=== PATIENT | female | born 1985 | race Caucasian/White ===

== ENCOUNTER 2021-04-14 08:03 | Emergency (ER) | payer OTHER, SELFPAY ==
[2021-04-14 08:13] VITALS: BP 126/73; PULSE 79; RESP 16; TEMP 36.4; O2SAT 98
[2021-04-14 08:25] VITALS: BP 126/73; PULSE 79; RESP 16; TEMP 36.4; O2SAT 98
--- NOTE | 2021-04-14 08:37 | ED.URI ---
HPI - URI/Sore Throat General Chief Complaint: Upper Respiratory Infection Stated Complaint: Congestion Time Seen by Provider: 04/14/21 08:19 Source: patient and RN notes reviewed Mode of arrival: ambulatory Limitations: no limitations History of Present Illness HPI Narrative: Patient presents today complaining of congestion and postnasal drip since yesterday. Denies congestion, sore throat, fever, shortness of breath. Daughter was diagnosed with strep throat 1 week ago. She has been using Claritin and Sudafed as well as ibuprofen with mild relief. MD elicited complaint: nasal congestion Related Data Home Medications Medication Instructions Recorded Confirmed levonorgestrel [Mirena] INTRAUTERINE 10/07/19 Allergies Allergy/AdvReac Type Severity Reaction Status Date / Time No Known Allergies Allergy Verified 04/14/21 08:12 Review of Systems Review of Systems: Narrative: CONSTITUTIONAL: Denies body aches, fever, chills, or sweats. EYES: Denies visual changes, redness, or discharge. ENT: Denies rhinorrhea, sore throat, or otalgia. + Congestion, postnasal drip CARDIOVASCULAR: Denies chest pain, palpitations, or edema. RESPIRATORY: Denies cough or dyspnea. GASTROINTESTINAL: Denies abdominal pain, nausea, vomiting, or diarrhea. GENITOURINARY: Denies dysuria or hematuria. SKIN: Denies rash, itching, or wounds. MUSCULOSKELETAL: Denies back pain, joint pain, or myalgia. NEUROLOGIC: Denies headache, numbness, tingling, or weakness. PSYCH: Denies depression or anxiety. [facility] Past Medical History Medical History (Updated 04/14/21 @ 08:40 by Summer Guaman, RIKI, ) Depression Surgical History Surgical History (Updated 10/07/19 @ 12:46 by RIKI Hedrick) H/O: x 3 Social History Social History (Updated 10/07/19 @ 12:46 by RIKI Hedrick) Smoking status: Current every day smoker Tobacco type: cigarettes Alcohol intake: never Substance use: never Gender identity (if verbalized by the patient): Female Comments At time of signature, I have reviewed and agree with nursing past medical, surgical, social and family history unless otherwise noted. Please see nursing chart for further information. There is no relevant family history pertinent to the presenting complaint Exam Narrative: Exam Narrative: GENERAL: Well-appearing, well-nourished, and in no acute distress. HEAD: Normocephalic, atraumatic. EYES: EOMI. No redness or drainage. Conjunctivae normal. ENT: Mucous membranes pink and moist. Nares congested with rhinorrhea. TMs normal bilaterally. Throat erythematous and edematous. Tonsils 3+ without exudate. Uvula midline. NECK: Normal AROM. Supple. CHEST: No respiratory distress. Clear to auscultation. HEART: Regular rate and rhythm. No murmur appreciated. Normal peripheral pulses. EXTREMITIES: Normal range of motion. No edema. SKIN: Warm, dry, no rash. Capillary refill normal. Normal skin turgor. NEURO: No focal deficits. Alert and oriented x3. Gait steady. PSYCH: Normal affect. No signs of depression or anxiety. Course Vital Signs Vital signs: Vital Signs Temperature 97.6 F 04/14/21 08:13 Pulse Rate 79 04/14/21 08:13 Respiratory Rate 16 04/14/21 08:13 Blood Pressure 126/73 04/14/21 08:13 Pulse Oximetry 98 04/14/21 08:13 Temperature 97.6 F 04/14/21 08:25 Pulse Rate 79 04/14/21 08:25 Respiratory Rate 16 04/14/21 08:25 Blood Pressure 126/73 04/14/21 08:25 Pulse Oximetry 98 04/14/21 08:25 Reviewed. Pt has been instructed to follow up with her PCP regarding her elevated blood pressure today. MDM - URI/Sore Throat Differential Diagnosis Differential diagnosis: Likely upper respiratory infection, otitis media, sinusitis, viral infection, pharyngitis and other (Tonsillitis, strep throat, COVID-19) Lab Data Attestation: I reviewed the patient's lab results. Lab results narrative: Rapid COVID-19 test negative Labs:
== END 2021-04-14 08:46 | disposition home or self-care (01) ==
PROVIDERS: Emergency Provider Nurse Practitioner
DX: J02.0 Streptococcal pharyngitis (principal); Z20.822 Contact with and (suspected) exposure to COVID-19; F17.210 Nicotine dependence, cigarettes, uncomplicated
CPT/HCPCS: 87426; 87880; 99213; C9803; G0463

== ENCOUNTER 2021-06-19 08:26 | Emergency (ER) | payer OTHER, SELFPAY ==
--- NOTE | 2021-06-19 08:31 | ED.NAVMDI ---
HPI - Nausea/Vomiting/Diarrhea General Chief complaint: Nausea/Vomiting/Diarrhea Stated complaint: Headache/Diarrhea Source: patient and RN notes reviewed Mode of arrival: ambulatory History of Present Illness HPI Narrative: This is a 36-year-old female presented to urgent care with complaints of migraine which is not new to her congestion and a productive cough with white foamy secretions she also has been complaining of left ear pain. Patient notes that her daughter was recently diagnosed with upper respiratory infection and she has recently traveled. She will also be tested or Covid today. Patient notes that she has a history of nausea and takes Zofran daily to prevent her nausea. She also complains of diarrhea for the last 3 days. She notes that today she has had 3 episodes of diarrhea. The patient denies SOB, CP, palpitation, extremity numbness, lightheadedness, dizziness, constipation, chills, or fever. MD elicited complaint: nausea, vomiting and diarrhea Related Data Home Medications Medication Instructions Recorded Confirmed Mirena INTRAUTERINE 10/07/19 Allergies Allergy/AdvReac Type Severity Reaction Status Date / Time No Known Allergies Allergy Verified 04/14/21 08:12 Review of Systems Review of Systems: A 14 organ system Review of Systems was performed and pertinent positives included in the HPI, otherwise remaining ROS is negative. [facility] Past Medical History Medical History (Updated 06/19/21 @ 09:09 by CULLEN Storm) Depression Surgical History Surgical History (Updated 10/07/19 @ 12:46 by RIKI Hedrick) H/O: x 3 Social History Social History (Updated 10/07/19 @ 12:46 by RIKI Hedrick) Smoking status: Current every day smoker Tobacco type: cigarettes Alcohol intake: never Substance use: never Gender identity (if verbalized by the patient): Female Exam Narrative: GENERAL: This is a well-nourished, well-developed patient, in no apparent distress. HEAD: normocephalic, atraumatic. EYES: PERRL. Sclera clear/white. Vision is grossly intact. EARS: External ears normal, auditory canals clear and without drainage, TMs with erythematous without perforation. Hearing grossly intact. NOSE: External nose normal with no obvious nasal discharge, nares without redness, no rhinorrhea. THROAT: Mucous membranes moist, posterior pharynx with slight edema erythematous NECK: Neck supple, non-tender without lymphadenopathy, masses or thyromegaly. CARDIOVASCULAR: Regular rate and rhythm without murmurs, gallops, or rubs. RESPIRATORY: Clear to auscultation. Breath sounds equal bilaterally. No wheezes, rales, or rhonchi. GASTROINTESTINAL: Abdomen soft, non-tender, nondistended. Bowel sounds are active. No hepato-splenomegaly, or palpable masses. No guarding. SKIN: warm, intact with no suspicious lesions or rash, good texture and turgor. NEURO: awake, alert, and oriented to person, place and time. There were no obvious focal neurologic abnormalities. Steady gait EXTREMITIES: Normal range of motion. No edema. No calf tenderness. Negative Homans sign bilaterally. BACK: Nontender without deformity or crepitance. No flank tenderness. Course Course Emergency Course: Patient will be treated for upper respiratory infection and otitis media Vital Signs Vital signs: Vital Signs Temperature 97.5 F L 06/19/21 08:38 Pulse Rate 92 06/19/21 08:38 Respiratory Rate 18 06/19/21 08:38 Blood Pressure 115/72 06/19/21 08:38 Pulse Oximetry 97 06/19/21 08:38 Temperature 97.5 F L 06/19/21 08:38 Pulse Rate 92 06/19/21 08:38 Respiratory Rate 18 06/19/21 08:38 Blood Pressure 115/72 06/19/21 08:38 Pulse Oximetry 97 06/19/21 08:38 MDM - Nausea/Vomiting/Diarrhea Differential Diagnosis Differential diagnosis: Likely food poisoning, gastroenteritis, dehydration and other (Upper respiratory infection, otitis media) Discharge Plan Discharge Clinical Im
[2021-06-19 08:38] VITALS: BP 115/72; PULSE 92; RESP 18; TEMP 36.4; O2SAT 97
== END 2021-06-19 09:27 | disposition home or self-care (01) ==
PROVIDERS: Emergency Provider Nurse Practitioner
DX: H66.92 Otitis media, unspecified, left ear (principal); J06.9 Acute upper respiratory infection, unspecified; Z20.822 Contact with and (suspected) exposure to COVID-19; F17.210 Nicotine dependence, cigarettes, uncomplicated
CPT/HCPCS: 87426; 99213; C9803; G0463

== ENCOUNTER 2021-07-26 19:30 | Emergency (ER) | payer OTHER, SELFPAY ==
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
[2021-07-26 19:40] VITALS: BP 120/75; PULSE 96; RESP 20; TEMP 36.8; O2SAT 99
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
== END 2021-07-26 20:25 | disposition home or self-care (01) ==
PROVIDERS: Emergency Provider Nurse Practitioner
DX: M54.5 Low back pain (principal); S16.1XXA Strain of muscle, fascia and tendon at neck level, initial encounter; V49.40XA Driver injured in collision with unspecified motor vehicles in traffic accident, initial encounter; F17.210 Nicotine dependence, cigarettes, uncomplicated
CPT/HCPCS: 72050; 72110; 99213; G0463

== ENCOUNTER 2021-08-05 09:39 | Emergency (ER) | payer OTHER, SELFPAY ==
[2021-08-05 10:01] VITALS: BP 109/72; PULSE 77; RESP 18; TEMP 36.5; O2SAT 97
--- NOTE | 2021-08-05 10:36 | ED.NAVMDI ---
HPI - Nausea/Vomiting/Diarrhea General Chief complaint: Nausea/Vomiting/Diarrhea Stated complaint: Throwing Up Time Seen by Provider: 08/05/21 10:36 Source: patient, RN notes reviewed and old records reviewed History of Present Illness HPI Narrative: 36 year old female presents to [facility] care with complaints of abdominal cramping,nausea and vomiting X2, diarrhea X3 starting this morning. Patient reports no fevers or anyone else in family ill. She reports that she ate [place] food Thursday evening but did not have any abdominal issues or any nausea on Thursday.Patient states she was suppose to start new job today at [employer] but with symptoms did not go into work but spoke with boss. Has been able to keep small sips of water down but has not eaten today. MD elicited complaint: diarrhea and abdominal pain (Cramping) Related Data Home Medications Medication Instructions Recorded Confirmed Mirena See Rx Instructions .ROUTE .COMPLEX 10/07/19 08/05/21 Allergies Allergy/AdvReac Type Severity Reaction Status Date / Time No Known Allergies Allergy Verified 07/26/21 19:50 Review of Systems Review of Systems: CONSTITUTIONAL: Denies fever, chills, or sweats. EYES: Denies visual changes, redness, or discharge. ENT: Denies rhinorrhea, congestion, sore throat, or otalgia. CARDIOVASCULAR: Denies chest pain, palpitations, or edema. RESPIRATORY: Denies cough or dyspnea. GASTROINTESTINAL: abdominal cramping no acute pain, positive nausea, vomiting, or diarrhea. GENITOURINARY: Denies dysuria or hematuria. SKIN: Denies rash or itching. MUSCULOSKELETAL: Denies back pain, joint pain, or myalgia. NEUROLOGIC: Denies headache, numbness, or weakness. PSYCHIATRIC:Positive history of anxiety or depression. All systems reviewed & are unremarkable except as noted in HPI and below PMFSH Past Medical History Medical History (Updated 08/06/21 @ 11:18 by Rashmi Bhatt NP) Depression Hx of migraines Surgical History Surgical History H/O: x 3 Family History Family History (Updated 08/06/21 @ 11:24 by Rashmi Bhatt NP) Grandparent Cerebrovascular accident Diabetes mellitus Carcinoma of colon Kidney disease Mother Lung cancer Social History Social History Smoking status: Current every day smoker Tobacco type: cigarettes Alcohol intake: never Substance use: never Gender identity (if verbalized by the patient): Female Comments At time of signature, agree with nursing past medical, surgical, social and family history. There is no relevant family history pertinent to the presenting complaint Exam Narrative: GENERAL: Well-appearing, well-nourished, and in no acute distress. HEAD: Normocephalic, atraumatic. EYES: PERRLA and EOMI. ENT: Nares clear, no rhinorrhea or epistaxis. Mucous membranes moist.Tm's normal throat pik with no lesions or exudates, no tonsil enlargement NECK: Supple.no lymphadenopathy CHEST: Clear to auscultation. No respiratory distress.SAO2 97% on room air HEART: Regular rate and rhythm. No murmur heard. Normal peripheral pulses. ABDOMEN: Soft, nontender to palpation, reports cramping sensation, no McBurney point tenderness, nondistended, normal active bowel sounds.nausea with vomiting and diarrhea. EXTREMITIES: Normal range of motion. No edema. SKIN: Warm, dry, no rash. NEURO: No focal deficits. Alert and oriented x3. Course Vital Signs Vital signs: Vital Signs Temperature 36.5 C 08/05/21 10:01 Pulse Rate 77 08/05/21 10:01 Respiratory Rate 18 08/05/21 10:01 Blood Pressure 109/72 08/05/21 10:01 Pulse Oximetry 97 08/05/21 10:01 Temperature 36.5 C 08/05/21 10:01 Pulse Rate 77 08/05/21 10:01 Respiratory Rate 18 08/05/21 10:01 Blood Pressure 109/72 08/05/21 10:01 Pulse Oximetry 97 08/05/21 10:01 MDM - Nausea/Vomiting/Diarrhea Differen
== END 2021-08-05 11:18 | disposition home or self-care (01) ==
PROVIDERS: Emergency Provider Registered Nurse
DX: K52.9 Noninfective gastroenteritis and colitis, unspecified (principal); F17.200 Nicotine dependence, unspecified, uncomplicated
CPT/HCPCS: 99213; G0463

== ENCOUNTER 2021-08-22 09:28 | Emergency (ER) | payer OTHER, SELFPAY ==
[2021-08-22 09:36] VITALS: BP 119/73; PULSE 79; RESP 16; TEMP 36.7; O2SAT 99
--- NOTE | 2021-08-22 10:28 | ED.URI ---
HPI - URI/Sore Throat General Chief Complaint: Upper Respiratory Infection Stated Complaint: Runny nose Time Seen by Provider: 08/22/21 10:29 Source: patient Mode of arrival: ambulatory Limitations: no limitations History of Present Illness HPI Narrative: Kelsi Burroughs is a 36 yo [facility] of [facility] and drainage that is worsened in the last 24 hours she has no severe sore throat no fever Related Data Home Medications Medication Instructions Recorded Confirmed Mirena See Rx Instructions .ROUTE .COMPLEX 10/07/19 08/22/21 Allergies Allergy/AdvReac Type Severity Reaction Status Date / Time No Known Allergies Allergy Verified 08/22/21 09:50 Review of Systems Review of Systems: CONSTITUTIONAL: Denies fever, chills, sweats. EYES: Denies visual changes, redness, discharge. ENT:has rhinorrhea, has congestion, sore throat, otalgia. CARDIOVASCULAR: Denies chest pain, palpitations, edema. RESPIRATORY: Denies dyspnea, wheezing, cough GASTROINTESTINAL: Denies abdominal pain, nausea, vomiting, diarrhea. GENITOURINARY: Denies dysuria, hematuria, abnormal discharge SKIN: Denies rash or itching. NEUROLOGIC: Denies numbness, or focal weakness. PSYCHIATRIC: Denies anxiety or depression. [facility] Past Medical History Medical History Depression Hx of migraines Surgical History Surgical History H/O: x 3 Family History Family History Grandparent Cerebrovascular accident Diabetes mellitus Carcinoma of colon Kidney disease Mother Lung cancer Social History Social History Smoking status: Current every day smoker Tobacco type: cigarettes Alcohol intake: never Substance use: never Gender identity (if verbalized by the patient): Female Comments At time of signature, I agree with nursing past medical, surgical, social and family history. There is no relevant family history pertinent to the presenting complaint. Exam Narrative: GENERAL: This is a well-nourished, well-developed patient, in mild distress. HEAD: normocephalic, atraumatic. EYES: Sclera clear/white. Vision is grossly intact. EARS: External ears normal, auditory canals erythema and without drainage, TMs normal without perforation. Hearing grossly intact. NOSE: External nose normal without nasal discharge, nares with redness, has rhinorrhea. THROAT: Mucous membranes moist, posterior pharynx erythema NECK: Neck supple, non-tender CARDIOVASCULAR: Regular rate and rhythm without murmurs, gallops, or rubs. RESPIRATORY: Clear to auscultation. Breath sounds equal bilaterally. No wheezes, rales, or rhonchi. GASTROINTESTINAL: Abdomen soft, non-tender, SKIN: warm, intact with no suspicious lesions or rash, good texture and turgor. NEURO: awake, alert, and oriented to person, place and time. There were no obvious focal neurologic abnormalities. Steady gait EXTREMITIES: Normal range of motion. BACK: Nontender without deformity Course Course Emergency Course: Patient comes with 1 day of upper respiratory symptoms including congestion and stuffiness, morning cough but also smokes PCR Covid done quarantine until results obtained Prednisone Zyrtec and Mucinex Vital Signs Vital signs: Vital Signs Temperature 98.0 F 08/22/21 09:36 Pulse Rate 79 08/22/21 09:36 Respiratory Rate 16 08/22/21 09:36 Blood Pressure 119/73 08/22/21 09:36 Pulse Oximetry 99 08/22/21 09:36 Temperature 98.0 F 08/22/21 09:36 Pulse Rate 79 08/22/21 09:36 Respiratory Rate 16 08/22/21 09:36 Blood Pressure 119/73 08/22/21 09:36 Pulse Oximetry 99 08/22/21 09:36 MDM - URI/Sore Throat Differential Diagnosis Differential diagnosis: Likely sinusitis, bronchitis, influenza, pharyngitis
[2021-08-23 17:41] LABS: SARS-CoV-2 RNA PCR Negative
== END 2021-08-22 11:05 | disposition home or self-care (01) ==
PROVIDERS: Emergency Provider Nurse Practitioner
DX: J06.9 Acute upper respiratory infection, unspecified (principal); Z20.822 Contact with and (suspected) exposure to COVID-19; F32.A Depression, unspecified; F17.210 Nicotine dependence, cigarettes, uncomplicated
CPT/HCPCS: 99213; C9803; G0463; U0003; U0005

== ENCOUNTER 2022-02-25 13:28 | Emergency (ER) | payer OTHER, SELFPAY ==
[2022-02-25 13:36] VITALS: BP 108/63; PULSE 86; RESP 16; TEMP 36.9; O2SAT 99
[2022-02-25 13:39] VITALS: BP 108/63; PULSE 86; RESP 16; TEMP 36.9; O2SAT 99
--- NOTE | 2022-02-25 13:48 | ED.DENTAL ---
HPI - Dental/Oral General Chief complaint: Dental/Oral Stated complaint: Tooth Pain Source: patient Mode of arrival: ambulatory Limitations: no limitations History of Present Illness HPI Narrative: 36-year-old female presents to [facility] with right lower tooth pain for the past 2 weeks. Patient reports that she had a long time filling full out from this tooth approximately 3 months ago. Patient has been taking [id number] ibuprofen with minimal relief. Patient denies fever, bodyaches, chills, nausea, vomiting or diarrhea. MD Complaint: tooth pain Location: Tooth # (30) Onset (ago): week(s) (2) Relieving factors: nothing Exacerbating factors: nothing Treatment prior to arrival: none Related Data Home Medications Medication Instructions Recorded Confirmed Mirena See Rx Instructions .ROUTE .COMPLEX 10/07/19 02/25/22 Allergies Allergy/AdvReac Type Severity Reaction Status Date / Time No Known Allergies Allergy Verified 02/25/22 13:31 Review of Systems Constitutional: Constitutional: Denies chills, Denies fatigue, Denies fever(s) and Denies weakness ENT: Comments: right lower tooth pain Integumentary/Breasts: Skin/Breast: Denies rash Neurologic: Denies dizziness PMFSH Past Medical History Medical History Depression Hx of migraines Surgical History Surgical History H/O: x 3 Family History Family History Grandparent Cerebrovascular accident Diabetes mellitus Carcinoma of colon Kidney disease Mother Lung cancer Social History Social History Smoking status: Current every day smoker Tobacco type: cigarettes Alcohol intake: never Substance use: never Gender identity (if verbalized by the patient): Female Comments At time of signature, I agree with nursing past medical, surgical, social and family history. There is no relevant family history pertinent to the presenting complaint. Exam Const: General: no acute distress Nutritional Appearance: well nourished Orientation/consciousness: patient oriented x3 Other: Broken tooth noted to right lower tooth -- #30. There is no obvious abscess noted. There is mild erythema noted to the tooth. Neck: Neck: normal visual inspection Resp: Effort & Inspection: normal respiratory effort and not tachypneic Auscultation: clear to auscultation bilaterally Cardio: Rate: regular rate, not bradycardic and not tachycardic Rhythm: regular rhythm Skin: General skin exam: normal color Rashes: no rashes Wounds: no wounds Neuro: General: patient oriented x3, moves all extremities and no meningeal signs Psych: Appearance: grossly normal Mental Status: mental status grossly normal Affect: normal affect Attitude: cooperative Thought content: Yes Normal thought content present Course Course Level of Care: Express Care Visit Vital Signs Vital signs: Vital Signs Temperature 36.9 C 02/25/22 13:36 Pulse Rate 86 02/25/22 13:36 Respiratory Rate 16 02/25/22 13:36 Blood Pressure 108/63 02/25/22 13:36 Pulse Oximetry 99 02/25/22 13:36 Temperature 36.9 C 02/25/22 13:39 Pulse Rate 86 02/25/22 13:39 Respiratory Rate 16 02/25/22 13:39 Blood Pressure 108/63 02/25/22 13:39 Pulse Oximetry 99 02/25/22 13:39 MDM - Dental/Oral MDM Narrative Medical decision making narrative: Patient agrees take antibiotics as prescribed. Patient agrees to do warm salt water gargles as needed. Patient agrees to alternate Motrin and Tylenol as needed for the pain. Patient agrees to proceed the emergency room if symptoms worsen Differential Diagnosis Differential diagnosis: Likely gingival abscess, toothache and dental abscess Critical Care Time Critical Care Time Critical Care Time: No Discharg
== END 2022-02-25 14:01 | disposition home or self-care (01) ==
PROVIDERS: Emergency Provider Nurse Practitioner Family
DX: K08.89 Other specified disorders of teeth and supporting structures (principal)
CPT/HCPCS: 99213; G0463

== ENCOUNTER 2022-04-28 19:45 | Emergency (ER) | payer OTHER, SELFPAY ==
--- NOTE | 2022-04-28 19:51 | ED.SKABFB ---
HPI - Skin/Abscess/Foreign Bdy General Chief complaint: Skin/Abscess/Foreign Body Stated complaint: Absess on Arm Time Seen by Provider: 04/28/22 19:55 Source: patient Mode of arrival: ambulatory Limitations: no limitations History of Present Illness HPI narrative: 37-year-old female presented for complaints of abscess under the left upper arm. She states comes and goes over the last year. She endorses popping it about 3 days ago and white thick discharge was expelled. She denies any other locations. She denies any insect bite. MD complaint: rash Related Data Home Medications Medication Instructions Recorded Confirmed levonorgestrel 20 mcg/24 hours (7 See Rx Instructions .Route .COMPLEX 10/07/19 04/28/22 yrs) 52 mg intrauterine device (Mirena) Allergies Allergy/AdvReac Type Severity Reaction Status Date / Time No Known Allergies Allergy Verified 02/25/22 13:31 Review of Systems Review of Systems: CONSTITUTIONAL: Denies body aches, fever, chills, or sweats. CARDIOVASCULAR: Denies chest pain, palpitations, or edema. RESPIRATORY: Denies cough or dyspnea. SKIN: reports arm abscess MUSCULOSKELETAL: Denies back pain, joint pain, or myalgia. NEUROLOGIC: Denies headache, numbness, tingling, or weakness. PSYCH: Denies depression or anxiety. [facility] Past Medical History Medical History Depression Hx of migraines Surgical History Surgical History H/O: x 3 Family History Family History Grandparent Cerebrovascular accident Diabetes mellitus Carcinoma of colon Kidney disease Mother Lung cancer Social History Social History Smoking status: Current every day smoker Tobacco type: cigarettes Alcohol intake: never Substance use: never Gender identity (if verbalized by the patient): Female Comments At time of signature, I have reviewed and agree with nursing past medical, surgical, social and family history unless otherwise noted. Please see nursing chart for further information. There is no relevant family history pertinent to the presenting complaint Exam Narrative: GENERAL: Well-appearing ENT: Mucous membranes moist. Oropharynx without edema, erythema or lesions. CHEST: Clear to auscultation. No respiratory distress. HEART: Regular rate and rhythm. SKIN: Warm, dry. Left upper arm abscess approximately 2 cm x 2.5 cm, fluctuant center, no streaking or surrounding cellulitis NEURO: Alert and oriented x3. Course Course Emergency Course: Patient is aware of diagnosis, understands and agrees to treatment plan. Anticipatory guidance given. Patient agrees to follow-up as directed and is aware of reasons to seek care at the emergency department. Portions of this record may have been created with voice recognition software Level of Care: Express Care Visit Vital Signs Vital signs: Vital Signs Temperature 99.1 F 04/28/22 19:54 Pulse Rate 86 04/28/22 19:54 Respiratory Rate 18 04/28/22 19:54 Blood Pressure 107/57 L 04/28/22 19:54 Pulse Oximetry 99 04/28/22 19:54 Oxygen Delivery Room Air 04/28/22 19:54 Temperature 99.1 F 04/28/22 19:54 Pulse Rate 86 04/28/22 19:54 Respiratory Rate 18 04/28/22 19:54 Blood Pressure 107/57 L 04/28/22 19:54 Pulse Oximetry 99 04/28/22 19:54 Oxygen Delivery Room Air 04/28/22 19:54 Reviewed Procedures Abscess I/D upper extremity: Date of Incision: 04/28/22 Side (if applicable): left Local Anesthetic: none Technique: needle aspiration Irrigation: No Packing used?: none I&D Results: Pus Abcess I&D Additional Comments: Wound was cleansed with primary norm and sterile water, alcohol applied and using an 18-gauge needl
[2022-04-28 19:54] VITALS: BP 107/57; PULSE 86; RESP 18; TEMP 37.3; O2SAT 99
== END 2022-04-28 20:29 | disposition home or self-care (01) ==
PROVIDERS: Emergency Provider Nurse Practitioner Family
DX: L02.414 Cutaneous abscess of left upper limb (principal); F17.210 Nicotine dependence, cigarettes, uncomplicated
CPT/HCPCS: 10160; 99213; G0463

== ENCOUNTER 2022-06-04 19:08 | Emergency (ER) | payer OTHER, SELFPAY ==
[2022-06-04 19:15] VITALS: BP 117/68; PULSE 88; RESP 16; TEMP 36.7; O2SAT 100
--- NOTE | 2022-06-04 19:32 | ED.NAVMDI ---
HPI - Nausea/Vomiting/Diarrhea General Chief complaint: Nausea/Vomiting/Diarrhea Stated complaint: abd pain Time Seen by Provider: 06/04/22 19:28 Source: patient Mode of arrival: ambulatory Limitations: no limitations History of Present Illness HPI Narrative: Patient presents today complaining of nausea. States she has been nauseated for the past 2 days, however, then states she has been intermittently nauseated since having her last child 6 years ago. Since that time she has been on nausea medication that she takes almost every day prescribed by her [employer]. She denies any additional symptoms to include vomiting, diarrhea, abdominal pain, fever, urinary symptoms, URI symptoms. Patient states, I mainly came to calm down my . Related Data Home Medications Medication Instructions Recorded Confirmed levonorgestrel 20 mcg/24 hours (7 See Rx Instructions .Route .COMPLEX 10/07/19 06/04/22 yrs) 52 mg intrauterine device (Mirena) escitalopram oxalate 10 mg tablet 10 mg PO DAILY 06/04/22 06/04/22 (Lexapro) Allergies Allergy/AdvReac Type Severity Reaction Status Date / Time No Known Allergies Allergy Verified 06/04/22 19:17 Review of Systems Review of Systems: CONSTITUTIONAL: Denies body aches, fever, chills, or sweats. EYES: Denies visual changes, redness, or discharge. ENT: Denies rhinorrhea, congestion, sore throat, or otalgia. CARDIOVASCULAR: Denies chest pain, palpitations, or edema. RESPIRATORY: Denies cough or dyspnea. GASTROINTESTINAL: Denies abdominal pain, vomiting, or diarrhea.+ Nausea GENITOURINARY: Denies dysuria or hematuria. SKIN: Denies rash, itching, or wounds. MUSCULOSKELETAL: Denies back pain, joint pain, or myalgia. NEUROLOGIC: Denies headache, numbness, tingling, or weakness. PSYCH: Denies depression or anxiety. [facility] Past Medical History Medical History Depression Hx of migraines Surgical History Surgical History H/O: x 3 Family History Family History Grandparent Cerebrovascular accident Diabetes mellitus Carcinoma of colon Kidney disease Mother Lung cancer Social History Social History Smoking status: Current every day smoker Tobacco type: cigarettes Alcohol intake: never Substance use: never Gender identity (if verbalized by the patient): Female Comments At time of signature, I have reviewed and agree with nursing past medical, surgical, social and family history unless otherwise noted. Please see nursing chart for further information. There is no relevant family history pertinent to the presenting complaint Exam Narrative: GENERAL: Well-appearing, well-nourished, and in no acute distress. HEAD: Normocephalic, atraumatic. EYES: EOMI. No redness or drainage. Eyes bloodshot. ENT: Mucous membranes pink and moist. NECK: Normal AROM. CHEST: No respiratory distress. Clear to auscultation. HEART: Regular rate and rhythm. No murmur appreciated. Normal peripheral pulses. ABDOMEN: Soft, nontender, nondistended, normal active bowel sounds. EXTREMITIES: Normal range of motion. No edema. SKIN: Warm, dry, no rash. Capillary refill normal. Normal skin turgor. NEURO: No focal deficits. Alert and oriented x3. Gait steady. PSYCH: Patient seems under the influence. Smells of marijuana. Course Course Level of Care: Express Care Visit Vital Signs Vital signs: Vital Signs Temperature 98.0 F 06/04/22 19:15 Pulse Rate 88 06/04/22 19:15 Respiratory Rate 16 06/04/22 19:15 Blood Pressure 117/68 06/04/22 19:15 Pulse Oximetry 100 06/04/22 19:15 Oxygen Delivery Room Air 06/04/22 19:15 Temperature 98.0 F 06/04/22 19:15 Pulse Rate 88 06/04/22 19:15 Respiratory Rate 16 06/04
== END 2022-06-04 19:33 | disposition home or self-care (01) ==
PROVIDERS: Emergency Provider Nurse Practitioner
DX: R11.0 Nausea (principal); F17.210 Nicotine dependence, cigarettes, uncomplicated; F32.A Depression, unspecified
CPT/HCPCS: 99211; G0463

== ENCOUNTER 2022-10-20 19:33 | Emergency (ER) | payer OTHER, SELFPAY ==
[2022-10-20 19:55] VITALS: BP 127/83; PULSE 97; RESP 16; TEMP 36.5; O2SAT 98
--- NOTE | 2022-10-20 22:11 | PC.NURSE ---
called for patient with no response
== END 2022-10-20 22:11 | disposition left against medical advice (07) ==
LOC: ANHED 22:32
DX: R20.0 Anesthesia of skin (principal)
CPT/HCPCS: 99199

== ENCOUNTER 2022-11-05 12:15 | Emergency (ER) | payer OTHER, SELFPAY ==
[2022-11-05 12:29] VITALS: BP 128/74; PULSE 75; RESP 20; TEMP 36.5; O2SAT 96
--- NOTE | 2022-11-05 12:35 | ED.DENTAL ---
HPI - Dental/Oral General Chief complaint: Dental/Oral Stated complaint: tooth ache Time Seen by Provider: 11/05/22 12:32 Source: patient Mode of arrival: ambulatory Limitations: no limitations History of Present Illness HPI Narrative: Ms. Burroughs is a 37-year-old female patient presenting to the clinic today with complaints of possible dental abscess to the right lower jaw. She reports that she has had this issue off and on for over 1 year. She denies being able to see a dentist as no one in the area takes her insurance. She denies any fever or chills Related Data Home Medications Medication Instructions Recorded Confirmed levonorgestrel 20 mcg/24 hours (8 See Rx Instructions .Route .COMPLEX 10/07/19 06/04/22 yrs) 52 mg intrauterine device (Mirena) escitalopram oxalate 10 mg tablet 10 mg PO DAILY 06/04/22 06/04/22 (Lexapro) Allergies Allergy/AdvReac Type Severity Reaction Status Date / Time No Known Allergies Allergy Verified 11/05/22 12:43 Review of Systems Review of Systems: Pertinent positives per HPI. Patient denies any fever, chills, rash, headache, visual changes, dizziness, cough, runny nose, sore throat, shortness of breath, chest pain, palpitations, nausea, vomiting, diarrhea, constipation, abdominal pain, or any urinary issues. [facility] Past Medical History Medical History Depression Hx of migraines Surgical History Surgical History H/O: x 3 Family History Family History Grandparent Cerebrovascular accident Diabetes mellitus Carcinoma of colon Kidney disease Mother Lung cancer Social History Social History Smoking status: Current every day smoker Tobacco type: cigarettes Alcohol intake: never Substance use: never Gender identity (if verbalized by the patient): Female Comments At the time of my signature, I reviewed and agree with the nursing past medical, surgical, social, and family history. There is no relevant family history pertinent to the patient complaint. Exam Narrative: General: Well-developed, well nourished, in no apparent distress Head: Normocephalic, atraumatic Eyes: Pupils equally round and reactive to light bilaterally, EOM intact, sclera and conjunctive clear, no discharge, lids normal Ears: TMs intact and clear, ear canals clear, no drainage, grossly hearing normal. Nose: Nares patent, no discharge, no inflammation, no sinus tenderness. Mouth: Oropharynx without lesions or masses, poor dentition, MMM. fractured number 29 to with dental abscess- induration, tenderness, and mild redness measuring 2 cm x 2 cm but is firm and nonfluctuant Neck: Supple, trachea midline, no enlargement of anterior or posterior cervical nodes, no thyroid masses or goiter palpable. Cardio: Regular rate and rhythm, s1 and s2 normal, no murmur appreciated. Resp: Clear to auscultation bilaterally anteriorly and posteriorly, no rhonchi, rales, wheezing or rubs Course Course Emergency Course: Portions of this record may have been created with voice recognition software. Level of Care: Express Care Visit Vital Signs Vital signs: Vital Signs Temperature 36.5 C 11/05/22 12:29 Pulse Rate 75 11/05/22 12:29 Respiratory Rate 20 11/05/22 12:29 Blood Pressure 128/74 11/05/22 12:29 Pulse Oximetry 96 11/05/22 12:29 Oxygen Delivery Room Air 11/05/22 12:29 Temperature 36.5 C 11/05/22 12:29 Pulse Rate 75 11/05/22 12:29 Respiratory Rate 20 11/05/22 12:29 Blood Pressure 128/74 11/05/22 12:29 Pulse Oximetry 96 11/05/22 12:29 Oxygen Delivery Room Air 11/05/22 12:29 Vital signs reviewed MDM - Dental/Oral MDM Narrative Medical decision making narrative: at the time of v
== END 2022-11-05 12:42 | disposition home or self-care (01) ==
PROVIDERS: Emergency Provider Nurse Practitioner Family
DX: K04.7 Periapical abscess without sinus (principal); F32.A Depression, unspecified; F17.200 Nicotine dependence, unspecified, uncomplicated
CPT/HCPCS: 99213; G0463

== ENCOUNTER 2023-03-10 12:28 | Emergency (ER) | payer OTHER, SELFPAY ==
[2023-03-10 12:31] VITALS: BP 115/68; PULSE 93; RESP 18; TEMP 37.7; O2SAT 98
--- NOTE | 2023-03-10 12:31 | ED.SKABFB ---
HPI - Skin/Abscess/Foreign Bdy General Chief complaint: Wound/Laceration Stated complaint: Wound Belly Button Time Seen by Provider: 03/10/23 12:49 Source: patient, RN notes reviewed and old records reviewed Mode of arrival: ambulatory Limitations: no limitations History of Present Illness HPI narrative: 37-year-old female presents to the [facility] with purulent drainage from inside the belly button. States it started an hour prior to arrival. Patient reports that there was a not feeling around the umbilical for the last week. Related Data Home Medications Medication Instructions Recorded Confirmed levonorgestrel 21 mcg/24 hours (8 See Rx Instructions .Route .COMPLEX 10/07/19 03/10/23 yrs) 52 mg intrauterine device (Mirena) escitalopram oxalate 10 mg tablet 10 mg PO DAILY 06/04/22 03/10/23 (Lexapro) Allergies Allergy/AdvReac Type Severity Reaction Status Date / Time No Known Allergies Allergy Verified 03/10/23 12:30 Review of Systems Review of Systems: All systems reviewed & are unremarkable except as noted in HPI and below Constitutional: Constitutional: Reports no additional constitutional complaints Eyes: Eyes: Reports no additional eye complaints ENT: Reports system reviewed and no additional complaints, except as documented Cardiovascular: Cardiovascular: Reports no additional cardiovascular complaints, Denies chest pain and Denies dyspnea Respiratory: Respiratory: Reports no additional respiratory complaints, Denies chest congestion, Denies cough and Denies dyspnea Gastrointestinal: Gastrointestinal: Reports no additional gastrointestinal complaints, Denies abdominal pain, Denies nausea and Denies vomiting Musculoskeletal: Musculoskeletal: Reports no additional musculoskeletal complaints Integumentary/Breasts: Skin/Breast: Reports as per HPI Neurologic: Reports system reviewed and no additional complaints, except as documented Psychiatric: Psychiatric: Reports no additional psychiatric complaints Allergic/Immunologic: Allergic/Immunologic: Reports no additional allergic/immunologic complaints PMFSH Past Medical History Medical History Depression Hx of migraines Surgical History Surgical History H/O: x 3 Family History Family History Grandparent Cerebrovascular accident Diabetes mellitus Carcinoma of colon Kidney disease Mother Lung cancer Social History Social History Smoking status: Current every day smoker Tobacco type: cigarettes Alcohol intake: never Substance use: never Occupation/Education: unemployed Gender identity (if verbalized by the patient): Female Comments At the time of my signature, I reviewed and agree with the nursing past medical, surgical, social, and family history. There is no relevant family history pertinent to the patient complaint. Exam Const: General: cooperative, healthy appearing, comfortable, no acute distress, well developed, alert and well nourished Nutritional Appearance: well nourished and obese Orientation/consciousness: patient oriented x3 Limitations: no limitations HENMT: Head: normal to inspection Ears: hearing grossly normal bilaterally and external ears normal Face/Nose/Sinus: Normal external nose present, Normal nares present, Normal nasal mucous membranes and turbinates present and normal facial exam Face and sinus: normal facial exam Mouth: Yes lip normal and Yes moist mucous membranes Eyes: General: appearance normal, both eyes and all related structures Alignment and Position: alignment normal Periorbital: periorbital findings normal Conjunctivae: conjunctivae normal Pupils: Equal, round and reactive pupils present EOM: EOMs intact bilaterally Neck: Neck: normal visual i
== END 2023-03-10 13:02 | disposition home or self-care (01) ==
PROVIDERS: Emergency Provider Nurse Practitioner
DX: R19.8 Other specified symptoms and signs involving the digestive system and abdomen (principal); F17.210 Nicotine dependence, cigarettes, uncomplicated; F32.A Depression, unspecified
CPT/HCPCS: 87070; 87205; 99213; G0463

== ENCOUNTER 2023-04-20 11:18 | Emergency (ER) | payer OTHER, SELFPAY ==
--- NOTE | 2023-04-20 11:29 | ED.SKABFB ---
HPI - Skin/Abscess/Foreign Bdy General Chief complaint: Unspecified Stated complaint: Blood from navel & pinched nerve in left shoulder Time Seen by Provider: 04/20/23 11:29 Source: patient Mode of arrival: ambulatory Limitations: no limitations History of Present Illness HPI narrative: Kelsi is a 38-year-old female patient presenting to the clinic today with complaints of bloody discharge coming from her navel and a pinched nerve in her left shoulder. 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 She reports she is having sharp pain to the left rhomboid has been going on for a few days. Also noticed this morning that she had some discharge coming from her belly button. History of umbilicus infection. Related Data Home Medications Medication Instructions Recorded Confirmed levonorgestrel 21 mcg/24 hours (8 See Rx Instructions .Route .COMPLEX 10/07/19 04/20/23 yrs) 52 mg intrauterine device (Mirena) escitalopram oxalate 10 mg tablet 10 mg PO DAILY 06/04/22 04/20/23 (Lexapro) Allergies Allergy/AdvReac Type Severity Reaction Status Date / Time No Known Allergies Allergy Verified 04/20/23 11:26 Review of Systems Review of Systems: Pertinent positives per HPI. Patient denies any fever, chills, rash, headache, visual changes, dizziness, cough, runny nose, sore throat, shortness of breath, chest pain, palpitations, nausea, vomiting, diarrhea, constipation, abdominal pain, or any urinary issues. PMFSH Past Medical History Medical History Depression Hx of migraines Surgical History Surgical History H/O: x 3 Family History Family History Grandparent Cerebrovascular accident Diabetes mellitus Carcinoma of colon Kidney disease Mother Lung cancer Social History Social History Smoking status: Current every day smoker Tobacco type: cigarettes Alcohol intake: never Substance use: never Occupation/Education: unemployed Gender identity (if verbalized by the patient): Female Comments At the time of my signature, I reviewed and agree with the nursing past medical, surgical, social, and family history. There is no relevant family history pertinent to the patient complaint. Exam Narrative: General: Well-developed, well nourished, in no apparent distress Head: Normocephalic, atraumatic. Cardio: Regular rate and rhythm, s1 and s2 normal, no murmur appreciated. Resp: Clear to auscultation bilaterally, no rhonchi, rales, wheezing or rubs. Musculoskeletal: No deformity, tender to palpation over left rhomboid musculature, pain over this area with raising her arm above her head, grossly normal range of motion, muscle strength strong and equal, peripheral pulse strong, no edema, no cyanosis, normal gait and station Integumentary: [place], warm, and dry, pustule area noted to the umbilicus at 12:00 p.m. with mild redness and swelling Course Course Emergency Course: Portions of this record may have been created with voice recognition software. Level of Care: Express Care Visit Vital Signs Vital signs: Vital signs reviewed MDM - Skin/Abscess/Foreign Bdy MDM Narrative Medical decision making narrative: At the time of visit patient is resting comfortably on the exam table. I suspect patient has an umbilical discharge/infection. Will send in prescription for some mupirocin cream. Also suspect a rhomboid strain. Will send in prescription for naproxen and Flexeril. Supportive measures were discussed with the patient she voiced understanding discharge instructions and agrees to treatment plan. Differential Diagnosis Differential diagnosis: Likely abscess of skin or subcutaneous tissue, cellulitis and other (Le
[2023-04-20 11:34] VITALS: BP 120/74; PULSE 71; RESP 12; TEMP 36.6; O2SAT 100
== END 2023-04-20 11:45 | disposition home or self-care (01) ==
PROVIDERS: Emergency Provider Nurse Practitioner Family
DX: R19.8 Other specified symptoms and signs involving the digestive system and abdomen (principal); S29.012A Strain of muscle and tendon of back wall of thorax, initial encounter; X50.3XXA Overexertion from repetitive movements, initial encounter; Y99.0 Civilian activity done for income or pay; F32.A Depression, unspecified; F17.210 Nicotine dependence, cigarettes, uncomplicated
CPT/HCPCS: 99213; G0463

== ENCOUNTER 2023-05-12 13:28 | Emergency (ER) | payer OTHER, SELFPAY ==
[2023-05-12 13:37] VITALS: BP 113/69; PULSE 80; RESP 16; TEMP 36.8; O2SAT 99
[2023-05-12 13:39] VITALS: BP 113/69; PULSE 80; RESP 16; TEMP 36.8; O2SAT 99
--- NOTE | 2023-05-12 13:57 | ED.DENTAL ---
HPI - Dental/Oral General Chief complaint: Dental/Oral Stated complaint: Dental Pain Time Seen by Provider: 05/12/23 13:55 Source: patient, RN notes reviewed and old records reviewed Mode of arrival: ambulatory Limitations: no limitations History of Present Illness HPI Narrative: 38 year old female who presents to [facility] care with complaints of dental pain to the #30 tooth for the past year which waxes and wanes. Patient states part of tooth came out in January and has been having increased pain and swelling to gum near #30 tooth for the past week with some redness along outer gum area. Patient reports that she has taken Ibuprofen and has used ice to her face for comfort measures. Patient reports difficulty finding dentist who will accept her insurance. Patient denies any difficulty with her breathing or with swallowing. MD Complaint: tooth pain Location: Tooth # (30) Onset (ago): week(s) (increased pain for one week with problems with tooth for 1 year) Severity scale (1-10): 8 Treatment prior to arrival: oral analgesic and other (ice compresses) Related Data Home Medications Medication Instructions Recorded Confirmed levonorgestrel 21 mcg/24 hours (8 See Rx Instructions .Route .COMPLEX 10/07/19 05/12/23 yrs) 52 mg intrauterine device (Mirena) Allergies Allergy/AdvReac Type Severity Reaction Status Date / Time No Known Allergies Allergy Verified 05/12/23 13:37 Review of Systems Review of Systems: CONSTITUTIONAL: Denies fever, chills, or sweats. ENT: Denies rhinorrhea, congestion, sore throat, or otalgia. Reports dental pain to #30 tooth with increased symptoms for past week CARDIOVASCULAR: Denies chest pain, palpitations, or edema. RESPIRATORY: Denies cough or dyspnea. SKIN: Denies rash or itching. MUSCULOSKELETAL: Denies myalgia. NEUROLOGIC: Denies headache All systems reviewed & are unremarkable except as noted in HPI and below PMFSH Past Medical History Medical History (Updated 05/13/23 @ 19:31 by Rashmi Bhatt NP) Anxiety and depression Depression Hx of migraines Surgical History Surgical History H/O: x 3 Family History Family History Grandparent Cerebrovascular accident Diabetes mellitus Carcinoma of colon Kidney disease Mother Lung cancer Social History Social History Smoking status: Current every day smoker Tobacco type: cigarettes Alcohol intake: never Substance use: never Occupation/Education: unemployed Gender identity (if verbalized by the patient): Female Comments At time of signature, agree with nursing past medical, surgical, social and family history. There is no relevant family history pertinent to the presenting complaint Exam Narrative: GENERAL: Well-appearing, well-nourished, and in no acute distress. HEAD: Normocephalic, atraumatic. EYES: PERRLA and EOMI. ENT: Nares clear, no rhinorrhea or epistaxis. Mucous membranes moist.#30 tooth broke off to gum, redness and swelling to outer gum along #30 tooth with pain verbalized, no drainage noted, No trismus or Travon angia noted. CHEST: Clear to auscultation. No respiratory distress SAO2 99% on room air. HEART: Regular rate and rhythm. No murmur heard. Normal peripheral pulses. SKIN: Warm, dry, no rash. NEURO: No focal deficits. Alert and oriented x3. Course Course Emergency Course: Patient is aware of diagnosis, understands and agrees to treatment plan. Anticipatory guidance given. Patient agrees to follow-up as directed and is aware of reasons to seek care at the emergency department. Portions of this record may have been created with voice recognition software Level of Care: Express Care Visit Vital Signs Vital signs: Vital Signs Temperature 36.8 C 05/12/23 13:37 Pulse Rate 80 05/12/23 13:37 Respi
== END 2023-05-12 14:18 | disposition home or self-care (01) ==
PROVIDERS: Emergency Provider Registered Nurse
DX: K04.7 Periapical abscess without sinus (principal); F17.210 Nicotine dependence, cigarettes, uncomplicated
CPT/HCPCS: 99213; G0463

== ENCOUNTER 2023-08-06 12:33 | Emergency (ER) | payer OTHER, SELFPAY ==
[2023-08-06 12:51] VITALS: BP 115/74; PULSE 84; RESP 18; TEMP 36.7; O2SAT 96
[2023-08-06 12:57] VITALS: BP 115/74; PULSE 84; RESP 18; TEMP 36.7; O2SAT 96
--- NOTE | 2023-08-06 14:12 | ED.DENTAL ---
HPI - Dental/Oral General Chief complaint: Dental/Oral Stated complaint: Dental Pain Time Seen by Provider: 08/06/23 14:05 Source: patient, RN notes reviewed and old records reviewed Mode of arrival: ambulatory Limitations: no limitations History of Present Illness HPI Narrative: 38 year old female presents to [facility] care with complaints of dental pain to the back lower area and some facial swelling. Patient has been taking Ibuprofen for her symptoms with out improvement and has used ice to her face for comfort measures. Patient has noted portion of her tooth missing # 30 from area of discomfort with redness and swelling of gums, no trismus noted not difficulty with breathing or with swallowing.Patient has had previous extraction of her wisdom teeth. MD Complaint: tooth pain Location: Tooth # Onset (ago): day(s) (4) Severity scale (1-10): 8 Treatment prior to arrival: oral analgesic Related Data Home Medications Medication Instructions Recorded Confirmed levonorgestrel 21 mcg/24 hours (8 See Rx Instructions .Route .COMPLEX 10/07/19 05/12/23 yrs) 52 mg intrauterine device (Mirena) Allergies Allergy/AdvReac Type Severity Reaction Status Date / Time No Known Allergies Allergy Verified 08/06/23 12:49 Review of Systems Review of Systems: CONSTITUTIONAL: Denies fever, chills, or sweats. ENT: Denies rhinorrhea, congestion, sore throat, or otalgia. Reports dental pain #30 tooth with portion of tooth missing, right facial swelling present CARDIOVASCULAR: Denies chest pain, palpitations, or edema. RESPIRATORY: Denies cough or dyspnea. SKIN: Denies rash or itching. MUSCULOSKELETAL: Denies myalgia. NEUROLOGIC: Denies headache All systems reviewed & are unremarkable except as noted in HPI and below PMFSH Past Medical History Medical History (Updated 08/07/23 @ 00:01 by Nancie Reyes) Anxiety and depression Depression Hx of migraines Surgical History Surgical History H/O: x 3 Family History Family History Grandparent Cerebrovascular accident Diabetes mellitus Carcinoma of colon Kidney disease Mother Lung cancer Social History Social History Smoking status: Current every day smoker Tobacco type: cigarettes Alcohol intake: never Substance use: never Occupation/Education: unemployed Gender identity (if verbalized by the patient): Female Comments At time of signature, agree with nursing past medical, surgical, social and family history. There is no relevant family history pertinent to the presenting complaint Exam Narrative: GENERAL: Well-appearing, well-nourished, and in no acute distress. HEAD: Normocephalic, atraumatic. EYES: PERRLA and EOMI. ENT: Nares clear, no rhinorrhea or epistaxis. Mucous membranes moist. caries, #30 tooth partially missing with facial swelling, no trismus or any Travon angina, some swelling and redness of surrounding gum NECK: Supple. no lymphadenopathy CHEST: Clear to auscultation. No respiratory distress.SAO2 96% on room air HEART: Regular rate and rhythm. No murmur heard. Normal peripheral pulses. SKIN: Warm, dry, no rash. NEURO: No focal deficits. Alert and oriented x3. Course Course Emergency Course: Patient is aware of diagnosis, understands and agrees to treatment plan. Anticipatory guidance given. Patient agrees to follow-up as directed and is aware of reasons to seek care at the emergency department. Portions of this record may have been created with voice recognition software Level of Care: Express Care Visit Vital Signs Vital signs: Vital Signs Temperature 36.7 C 08/06/23 12:51 Pulse Rate 84 08/06/23 12:51 Respiratory Rate 18 08/06/23 12:51 Blood Pressure 115/74 08/06/23 12:51 Pulse Oximetry 96 08/06/23 12:51 Oxygen Delivery Room A
== END 2023-08-06 14:30 | disposition home or self-care (01) ==
PROVIDERS: Emergency Provider Registered Nurse
DX: K04.7 Periapical abscess without sinus (principal); F17.210 Nicotine dependence, cigarettes, uncomplicated
CPT/HCPCS: 99213; G0463

== ENCOUNTER 2023-11-01 17:52 | Emergency (ER) | payer OTHER, SELFPAY ==
[2023-11-01 18:01] VITALS: BP 123/77; PULSE 101; RESP 16; TEMP 37.9; O2SAT 98
--- NOTE | 2023-11-01 18:14 | ED.URI ---
HPI - URI/Sore Throat General Chief Complaint: Upper Respiratory Infection Stated Complaint: fever, runny nose,diarrhea Time Seen by Provider: 11/01/23 18:14 Source: patient and RN notes reviewed Mode of arrival: ambulatory Limitations: no limitations History of Present Illness HPI Narrative: 38-year-old female presents concern for fever, runny diarrhea, cough. She reports she has been alternating Tylenol and ibuprofen. Reports symptoms started 4 days ago MD elicited complaint: cough Related Data Home Medications Medication Instructions Recorded Confirmed levonorgestrel 21 mcg/24 hours (8 See Rx Instructions .Route .COMPLEX 10/07/19 11/01/23 yrs) 52 mg intrauterine device (Mirena) Allergies Allergy/AdvReac Type Severity Reaction Status Date / Time No Known Allergies Allergy Verified 11/01/23 17:59 Review of Systems Review of Systems: CONSTITUTIONAL: Reports malaise, chills, sweats, or fever. EYES: Denies visual changes, redness, or discharge. ENT: Reports rhinorrhea CARDIOVASCULAR: Denies chest pain, palpitations, or edema. RESPIRATORY: Reports cough. Denies dyspnea. GASTROINTESTINAL: Denies abdominal pain, nausea, vomiting, diarrhea SKIN: Denies rash or itching. MUSCULOSKELETAL: Denies myalgia. NEUROLOGIC: Reports headache. All systems reviewed & are unremarkable except as noted in HPI and below PMFSH Past Medical History Medical History (Updated 11/01/23 @ 18:20 by Felecia Yin NP) Anxiety and depression Depression Hx of migraines Surgical History Surgical History H/O: x 3 Family History Family History Grandparent Cerebrovascular accident Diabetes mellitus Carcinoma of colon Kidney disease Mother Lung cancer Social History Social History Smoking status: Current every day smoker Tobacco type: cigarettes Alcohol intake: never Substance use: never Occupation/Education: unemployed Gender identity (if verbalized by the patient): Female Comments At time of signature, agree with nursing past medical, surgical, social and family history. There is no relevant family history pertinent to the presenting complaint Exam Narrative: GENERAL: Contact-appearing, well-nourished, and in no acute distress. HEAD: Normocephalic EYES: PERRLA, conjunctivae injected bilaterally ENT: Nares clear, clear discharge. Mucous membranes moist. TM pearly hughes with sharp light reflex bilaterally; no tragal tenderness. Oropharynx not erythematous without lesions. Tonsils not enlarged and without exudate, no drooling, no hoarseness, no trismus, uvula midline. NECK: Supple. No lymphadenopathy CHEST: Clear to auscultation, breath sounds equal. No wheezing, rhonchi, rales, or stridor. No respiratory distress, speaks in full sentences. HEART: Regular rate and rhythm. No murmur heard. SKIN: Warm, dry, no rash. NEURO: Alert and oriented x3. PSYCH: Normal mood and affect Course Course Emergency Course: Patient is aware of diagnosis, understands and agrees to treatment plan. Anticipatory guidance given. Patient agrees to follow-up as directed and is aware of reasons to seek care at the emergency department. Portions of this record may have been created with voice recognition software Level of Care: Express Care Visit Vital Signs Vital signs: Vital Signs Temperature 100.3 F H 11/01/23 18:01 Pulse Rate 101 H 11/01/23 18:01 Respiratory Rate 16 11/01/23 18:01 Blood Pressure 123/77 11/01/23 18:01 Pulse Oximetry 98 11/01/23 18:01 Oxygen Delivery Room Air 11/01/23 18:01 Temperature 100.3 F H 11/01/23 18:01 Pulse Rate 101 H 11/01/23 18:01 Respiratory Rate 16 11/01/23 18:01 Blood Pressure 123/77 11/01/23 18:01 Pulse Oximetry 98 11/01/23 18:01 Oxygen Delivery Room Air 11/01/23
== END 2023-11-01 18:25 | disposition home or self-care (01) ==
PROVIDERS: Emergency Provider Nurse Practitioner
DX: U07.1 COVID-19 (principal); F17.210 Nicotine dependence, cigarettes, uncomplicated
CPT/HCPCS: 87426; 87804; 99213; C9803; G0463

== ENCOUNTER 2023-12-02 10:32 | Emergency (ER) | payer OTHER, SELFPAY ==
[2023-12-02 10:50] VITALS: BP 116/60; PULSE 83; RESP 18; TEMP 36.8; O2SAT 97
--- NOTE | 2023-12-02 10:56 | ED.DENTAL ---
HPI - Dental/Oral General Chief complaint: Dental/Oral Stated complaint: tooth issue right side Time Seen by Provider: 12/02/23 10:56 Source: patient Mode of arrival: ambulatory Limitations: no limitations History of Present Illness HPI Narrative: 38-year-old female presents with complaint of right lower dental pain. Reports she has tooth that is broken off in her gum. Tried familial dental and was not able to help her. Taking ibuprofen and Tylenol to treat pain, patient is tearful. All systems reviewed and negative except as noted above. Related Data Home Medications Medication Instructions Recorded Confirmed levonorgestrel 21 mcg/24 hours (8 See Rx Instructions .Route .COMPLEX 10/07/19 12/02/23 yrs) 52 mg intrauterine device (Mirena) Allergies Allergy/AdvReac Type Severity Reaction Status Date / Time No Known Allergies Allergy Verified 12/02/23 10:59 Review of Systems Review of Systems: CONSTITUTIONAL: Denies fever, chills, or sweats. EYES: Denies visual changes, redness, or discharge. ENT: Denies rhinorrhea, congestion, sore throat, or otalgia. Reports right lower dental pain. CARDIOVASCULAR: Denies chest pain, palpitations, or edema. RESPIRATORY: Denies cough or dyspnea. GASTROINTESTINAL: Denies abdominal pain, nausea, vomiting, or diarrhea. GENITOURINARY: Denies dysuria or hematuria. SKIN: Denies rash or itching. MUSCULOSKELETAL: Denies back pain, joint pain, or myalgia. NEUROLOGIC: Denies headache, numbness, or weakness. PSYCHIATRIC: Denies anxiety or depression. All other systems reviewed are negative, except as documented in HPI. [facility] Past Medical History Medical History (Updated 12/02/23 @ 11:04 by Anastasia Laurent NP) Anxiety and depression Depression Hx of migraines Surgical History Surgical History H/O: x 3 Family History Family History Grandparent Cerebrovascular accident Diabetes mellitus Carcinoma of colon Kidney disease Mother Lung cancer Social History Social History Smoking status: Current every day smoker Tobacco type: cigarettes Alcohol intake: never Substance use: never Occupation/Education: unemployed Gender identity (if verbalized by the patient): Female Comments At time of signature, agree with nursing past medical, surgical, social and family history. There is no relevant family history pertinent to the presenting complaint. Exam Narrative: GENERAL: This is a well-nourished, well-developed patient, in no apparent distress. HEAD: normocephalic, atraumatic. EYES: PERRL. Sclera clear/white. Vision is grossly intact. EARS: External ears normal MOUTH: right lower gum swelling, tooth#30 broken at gumline, decayed NECK: Neck supple, non-tender without lymphadenopathy, masses or thyromegaly. CARDIOVASCULAR: Regular rate and rhythm without murmurs, gallops, or rubs. RESPIRATORY: Clear to auscultation. Breath sounds equal bilaterally. No wheezes, rales, or rhonchi. SKIN: warm, Dry, intact with no suspicious lesions or rash, good texture and turgor. NEURO: awake, alert, and oriented to person, place and time. There were no obvious focal neurologic abnormalities. EXTREMITIES: No joint tenderness, effusion, or edema noted. Course Course Emergency Course: patient given dental clinic list for follow-up. Patient is aware of diagnosis, understands and agrees to treatment plan. Anticipatory guidance given. Patient agrees to follow-up as directed and is aware of reasons to seek care at the emergency department. Portions of this record may have been created with voice recognition software Level of Care: Express Care Visit Vital Signs Vital signs: Reviewed Discharge Plan Discharge Clinical Impression: Dental infection Patient Disposi
== END 2023-12-02 11:10 | disposition home or self-care (01) ==
PROVIDERS: Emergency Provider Nurse Practitioner Family
DX: K04.7 Periapical abscess without sinus (principal); F17.210 Nicotine dependence, cigarettes, uncomplicated
CPT/HCPCS: 99213; G0463

== ENCOUNTER 2023-12-23 09:30 | Outpatient (CLI) | payer OTHER, SELFPAY ==
--- NOTE | ~2023-12-23 | US_ITS ---
EXAMINATION: US pelvic complete w TV DATE: 12/23/2023 11:09 INDICATION: Contraception care TECHNIQUE: Multiple transabdominal and endovaginal sonographic images of the pelvis were obtained. COMPARISON: None. FINDINGS: The uterus measures 8 x 4.3 x 5.3 cm. An IUD is present in expected position. The endometri al complex measures 5 mm. The ovaries are not visualized however no adnexal abnormality is seen. Ther e is no free fluid in the pelvis. IMPRESSION: 1. IUD in expected position. Reviewed, dictated and finalized at location B. [facility] AG[facility]
== END 2023-12-23 09:31 | disposition home or self-care (01) ==
LOC: ANHIMG 09:36
PROVIDERS: PCP Emergency Medicine; Visit Provider Emergency Medicine
DX: Z30.40 Encounter for surveillance of contraceptives, unspecified (principal); Z97.5 Presence of (intrauterine) contraceptive device
CPT/HCPCS: 76830; 76856

== ENCOUNTER 2023-12-29 09:13 | Emergency (ER) | payer OTHER, SELFPAY ==
[2023-12-29 09:28] VITALS: BP 104/62; PULSE 71; RESP 16; TEMP 36.9; O2SAT 99
--- NOTE | 2023-12-29 10:28 | ED.NAVMDI ---
HPI - Nausea/Vomiting/Diarrhea General Chief complaint: Nausea/Vomiting/Diarrhea Stated complaint: Vomiting Time Seen by Provider: 12/29/23 10:28 Source: patient and RN notes reviewed Mode of arrival: ambulatory Limitations: no limitations History of Present Illness HPI Narrative: 38 y/o female presented for c/o vomiting x3 days. States she vomited once yesterday, a few times this morning. Denies associated abdominal pain, fever, constipation or diarrhea. States she was told by US her mirena is in the wrong place. Daily smoker. Related Data Home Medications Medication Instructions Recorded Confirmed levonorgestrel 21 mcg/24 hours (8 See Rx Instructions .Route .COMPLEX 10/07/19 12/29/23 yrs) 52 mg intrauterine device (Mirena) Allergies Allergy/AdvReac Type Severity Reaction Status Date / Time No Known Allergies Allergy Verified 12/29/23 10:26 Review of Systems Review of Systems: CONSTITUTIONAL: Denies body aches, fever, chills ENT: Denies rhinorrhea, congestion CARDIOVASCULAR: Denies chest pain, palpitations, or edema. RESPIRATORY: Denies cough or dyspnea. GASTROINTESTINAL: Endorses nausea, vomiting Denies abdominal pain, diarrhea, hematochezia, melena, hematemesis GENITOURINARY: Denies dysuria, hematuria, or CVA tenderness. SKIN: Denies rash, itching, or wounds. MUSCULOSKELETAL: Denies back pain, joint pain, or myalgia. NEUROLOGIC: Denies headache, numbness, tingling, or weakness. All systems reviewed & are unremarkable except as noted in HPI and below PMFSH Past Medical History Medical History Anxiety and depression Depression Hx of migraines Surgical History Surgical History H/O: x 3 Family History Family History Grandparent Cerebrovascular accident Diabetes mellitus Carcinoma of colon Kidney disease Mother Lung cancer Social History Social History Smoking status: Current every day smoker Tobacco type: cigarettes Alcohol intake: never Substance use: never Occupation/Education: unemployed Gender identity (if verbalized by the patient): Female Comments At time of signature, I have reviewed and agree with nursing past medical, surgical, social and family history unless otherwise noted. Please see nursing chart for further information. There is no relevant family history pertinent to the presenting complaint Exam Narrative: GENERAL: Well-appearing EYES: EOMI. Conjunctivae normal. ENT: Mucous membranes pink and moist. CHEST: No respiratory distress. Clear to auscultation. HEART: Regular rate and rhythm. No murmur appreciated. Normal peripheral pulses. ABDOMEN: abd soft, nondistended, normal active bowel sounds. Nontender abdomen, No guarding, rebound tenderness, asymmetry EXTREMITIES: Normal range of motion. No edema. SKIN: Warm, dry, no rash. Capillary refill normal. Normal skin turgor. NEURO: No focal deficits. Alert and oriented x3. PSYCH: Normal affect. Course Course Emergency Course: Patient is aware of diagnosis, understands and agrees to treatment plan. Anticipatory guidance given. Patient agrees to follow-up as directed and is aware of reasons to seek care at the emergency department. Portions of this record may have been created with voice recognition software Level of Care: Express Care Visit Vital Signs Vital signs: Vital Signs Temperature 98.4 F 12/29/23 09:28 Pulse Rate 71 12/29/23 09:28 Respiratory Rate 16 12/29/23 09:28 Blood Pressure 104/62 12/29/23 09:28 Pulse Oximetry 99 12/29/23 09:28 Oxygen Delivery Room Air 12/29/23 09:28 Temperature 98.4 F 12/29/23 09:28 Pulse Rate 71 12/29/23 09:28 Respiratory Rate 16 12/29/23 09:28 Blood Pressure 104/62 12/29/23
== END 2023-12-29 11:10 | disposition home or self-care (01) ==
PROVIDERS: Emergency Provider Nurse Practitioner Family; PCP Emergency Medicine
DX: R11.2 Nausea with vomiting, unspecified (principal); F17.210 Nicotine dependence, cigarettes, uncomplicated; Z20.822 Contact with and (suspected) exposure to COVID-19
CPT/HCPCS: 81025; 87081; 87426; 87804; 87880; 99213; G0463

== ENCOUNTER 2024-04-06 11:34 | Emergency (ER) | payer OTHER, SELFPAY ==
[2024-04-06 11:41] VITALS: BP 125/76; PULSE 74; RESP 16; TEMP 37.1; O2SAT 99
[2024-04-06 11:44] VITALS: BP 125/76; PULSE 74; RESP 16; TEMP 37.1; O2SAT 99
--- NOTE | 2024-04-06 11:52 | ED.DENTAL ---
HPI - Dental/Oral General Chief complaint: Dental/Oral Stated complaint: Dental Pain Source: patient Mode of arrival: ambulatory History of Present Illness HPI Narrative: 39-year-old female presented for complaint of right lower dental pain worsening over the past week. She has been using ibuprofen, ice and salt water rinses but woke this morning with jaw swelling and more pain. States she has had many issues with this broken tooth, and plans to f/u with the dental school after the infection is resolved. MD Complaint: tooth pain Related Data Home Medications Medication Instructions Recorded Confirmed levonorgestrel 21 mcg/24 hr (up to See Rx Instructions .Route .COMPLEX 10/07/19 04/06/24 8 years) 52 mg intrauterine device (Mirena) Allergies Allergy/AdvReac Type Severity Reaction Status Date / Time No Known Allergies Allergy Verified 04/06/24 11:44 Review of Systems Review of Systems: CONSTITUTIONAL: Denies body aches, fever, chills ENT: Denies rhinorrhea, congestion, sore throat, or otalgia. Reports dental pain CARDIOVASCULAR: Denies chest pain, palpitations RESPIRATORY: Denies cough or dyspnea. SKIN: Denies rash, itching, or wounds. MUSCULOSKELETAL: Denies myalgia. NEUROLOGIC: Denies headache, numbness, tingling, or weakness. [facility] Past Medical History Medical History Anxiety and depression Depression Hx of migraines Surgical History Surgical History H/O: x 3 Family History Family History Grandparent Cerebrovascular accident Diabetes mellitus Carcinoma of colon Kidney disease Mother Lung cancer Social History Social History Smoking status: Current every day smoker Tobacco type: cigarettes Alcohol intake: never Substance use: never Occupation/Education: unemployed Gender identity (if verbalized by the patient): Female Comments At time of signature, I have reviewed and agree with nursing past medical, surgical, social and family history unless otherwise noted. Please see nursing chart for further information. There is no relevant family history pertinent to the presenting complaint Exam Narrative: GENERAL: Appears in pain; no acute distress. HEAD: Normocephalic, atraumatic. EYES: EOMI. No redness or drainage. Conjunctivae normal. ENT: Dental pain location of #29, broken to gumline, mild gum swelling no apparent abscess or drainage, swelling noted to face at site. Mucous membranes pink and moist. TMs normal bilaterally. Throat normal. Uvula midline. no dysphagia, odynophagia, dysphonia, or dyspnea NECK: Normal AROM. No lymphadenopathy.no induration below mandible, no neck pain. CHEST: No respiratory distress. Clear to auscultation. HEART: Regular rate and rhythm. No murmur appreciated. SKIN: Warm, dry Normal skin turgor. NEURO: No focal deficits. Alert and oriented x3. Gait steady. Course Course Emergency Course: Patient is aware of diagnosis, understands and agrees to treatment plan. Anticipatory guidance given. Patient agrees to follow-up as directed and is aware of reasons to seek care at the emergency department. Portions of this record may have been created with voice recognition software Level of Care: Express Care Visit Vital Signs Vital signs: Vital Signs Temperature 98.7 F 04/06/24 11:41 Pulse Rate 74 04/06/24 11:41 Respiratory Rate 16 04/06/24 11:41 Blood Pressure 125/76 04/06/24 11:41 Pulse Oximetry 99 04/06/24 11:41 Oxygen Delivery Room Air 04/06/24 11:41 Temperature 98.7 F 04/06/24 11:44 Pulse Rate 74 04/06/24 11:44 Respiratory Rate 16 04/06/24 11:44 Blood Pressure 125/76 04/06/24 11:44 Pulse Oximetry 99 04/06/24 11:44 Oxygen Delivery Room Air
== END 2024-04-06 12:02 | disposition home or self-care (01) ==
PROVIDERS: Emergency Provider Nurse Practitioner Family; PCP Emergency Medicine
DX: K04.7 Periapical abscess without sinus (principal)
CPT/HCPCS: 99213; G0463

== ENCOUNTER 2024-07-31 11:37 | Emergency (ER) | payer OTHER, SELFPAY ==
[2024-07-31 11:53] VITALS: BP 113/73; PULSE 83; RESP 20; TEMP 37.1; O2SAT 95
--- NOTE | 2024-07-31 12:39 | ED.SKABFB ---
HPI - Skin/Abscess/Foreign Bdy General Chief complaint: Skin/Abscess/Foreign Body Stated complaint: Skin/Bump On Left Breast Time Seen by Provider: 07/31/24 12:39 Source: patient, RN notes reviewed and old records reviewed Mode of arrival: ambulatory Limitations: no limitations History of Present Illness HPI narrative: Patient presents with complaints of dry skin to right-sided face, painful skin changes to left breast. She reports that she has had intermittent skin changes to the left breast for a couple of months. Reports that she has discussed this with her OBGYN, she states that her OBGYN ?has not even looked at it, just told me to put Neosporin on it.?. She reports that this circular red spot on the right cheek has been intermittent for past several months as well, says that she puts Neosporin on it with good results. 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 She denies any injury or trauma. She voices no other concerns or complaints at this time Related Data Home Medications Medication Instructions Recorded Confirmed levonorgestrel 21 mcg/24 hr (up to See Rx Instructions .Route .COMPLEX 10/07/19 07/31/24 8 years) 52 mg intrauterine device (Mirena) Allergies Allergy/AdvReac Type Severity Reaction Status Date / Time No Known Allergies Allergy Verified 07/31/24 11:50 Review of Systems Review of Systems: All systems reviewed & are unremarkable except as noted in HPI and below Constitutional: Constitutional: Reports no additional constitutional complaints ENT: Reports system reviewed and no additional complaints, except as documented Cardiovascular: Cardiovascular: Reports no additional cardiovascular complaints Respiratory: Respiratory: Reports no additional respiratory complaints Gastrointestinal: Gastrointestinal: Reports no additional gastrointestinal complaints Integumentary/Breasts: Skin/Breast: Reports system reviewed and no additional complaints, except as docu and Reports as per HPI PMFSH Past Medical History Medical History Anxiety and depression Depression Hx of migraines Surgical History Surgical History H/O: x 3 Family History Family History Grandparent Cerebrovascular accident Diabetes mellitus Carcinoma of colon Kidney disease Mother Lung cancer Social History Social History Smoking status: Current every day smoker Tobacco type: cigarettes Alcohol intake: never Substance use: never Occupation/Education: unemployed Gender identity (if verbalized by the patient): Female Comments At the time of my signature, I reviewed and agree with the nursing past medical, surgical, social, and family history. There is no relevant family history pertinent to the patient complaint. Exam Const: General: cooperative, no acute distress, alert and awake Orientation/consciousness: oriented to person, oriented to place and oriented to time HENMT: Head: normal to inspection Resp: Effort & Inspection: normal respiratory effort and able to speak in complete sentences Auscultation: clear to auscultation bilaterally, no crackles, no rales, no rhonchi and no wheezes Cardio: Palpation: normal PMI Rate: regular rate Rhythm: regular rhythm Heart sounds: S1 normal heart sound present and S2 normal heart sound present Skin: Full body images: 1. 2 cm flat red area, appears chronic 2. 4 cm area of induration and tenderness. no drainage Neuro: General: oriented to person, oriented to place and oriented to time Cranial nerves: Yes CN's II-XII intact bilaterally Psych: Appearance: grossly normal Thought process: Normal thought process present Insight: Good insight present (Psych) Judgement: Good judgement present (Psy
== END 2024-07-31 13:15 | disposition home or self-care (01) ==
PROVIDERS: Emergency Provider Nurse Practitioner Family; PCP Emergency Medicine
DX: L03.313 Cellulitis of chest wall (principal); L30.8 Other specified dermatitis; F17.210 Nicotine dependence, cigarettes, uncomplicated
CPT/HCPCS: 99213; G0463

== ENCOUNTER 2024-08-05 16:08 | Emergency (ER) | payer OTHER, SELFPAY ==
[2024-08-05 16:17] VITALS: BP 123/75; PULSE 98; RESP 16; TEMP 36.7; O2SAT 98
--- NOTE | 2024-08-05 16:54 | ED.DENTAL ---
HPI - Dental/Oral General Chief complaint: Dental/Oral Stated complaint: Dental Pain Time Seen by Provider: 08/05/24 16:54 Source: patient Mode of arrival: ambulatory Limitations: no limitations History of Present Illness HPI Narrative: 39-year-old female presents with complaint of right upper dental pain. Does not currently have a dentist. Has history of dental infections, poor dental health. Afebrile. All systems reviewed and negative except as noted above. Related Data Home Medications Medication Instructions Recorded Confirmed levonorgestrel 21 mcg/24 hr (up to See Rx Instructions .Route .COMPLEX 10/07/19 08/05/24 8 years) 52 mg intrauterine device (Mirena) Allergies Allergy/AdvReac Type Severity Reaction Status Date / Time No Known Allergies Allergy Verified 08/05/24 16:16 Review of Systems Review of Systems: CONSTITUTIONAL: Denies fever, chills, or sweats. EYES: Denies visual changes, redness, or discharge. ENT: Denies rhinorrhea, congestion, sore throat, or otalgia. Reports right upper dental pain. CARDIOVASCULAR: Denies chest pain, palpitations, or edema. RESPIRATORY: Denies cough or dyspnea. GASTROINTESTINAL: Denies abdominal pain, nausea, vomiting, or diarrhea. GENITOURINARY: Denies dysuria or hematuria. SKIN: Denies rash or itching. MUSCULOSKELETAL: Denies back pain, joint pain, or myalgia. NEUROLOGIC: Denies headache, numbness, or weakness. PSYCHIATRIC: Denies anxiety or depression. All other systems reviewed are negative, except as documented in HPI. [facility] Past Medical History Medical History Anxiety and depression Depression Hx of migraines Surgical History Surgical History H/O: x 3 Family History Family History Grandparent Cerebrovascular accident Diabetes mellitus Carcinoma of colon Kidney disease Mother Lung cancer Social History Social History Smoking status: Current every day smoker Tobacco type: cigarettes Alcohol intake: never Substance use: never Occupation/Education: unemployed Gender identity (if verbalized by the patient): Female Comments At time of signature, agree with nursing past medical, surgical, social and family history. There is no relevant family history pertinent to the presenting complaint. Exam Narrative: GENERAL: This is a well-nourished, well-developed patient, in no apparent distress. HEAD: normocephalic, atraumatic. EYES: PERRL. Sclera clear/white. Vision is grossly intact. EARS: External ears normal, auditory canals clear and without drainage, TMs normal without perforation. Hearing grossly intact. NOSE: External nose normal with no obvious nasal discharge, nares without redness, no rhinorrhea. MOUTH: multiple dental caries, dental decay. tooth #4, where pt experiencing pain, is broken down to gumline with surrounding swelling. NECK: Neck supple, non-tender without lymphadenopathy, masses or thyromegaly. CARDIOVASCULAR: Regular rate and rhythm without murmurs, gallops, or rubs. RESPIRATORY: Clear to auscultation. Breath sounds equal bilaterally. No wheezes, rales, or rhonchi. SKIN: warm, Dry, intact with no suspicious lesions or rash, good texture and turgor. NEURO: awake, alert, and oriented to person, place and time. There were no obvious focal neurologic abnormalities. EXTREMITIES: No joint tenderness, effusion, or edema noted. Course Course Level of Care: Express Care Visit Vital Signs Vital signs: Vital Signs Temperature 36.7 C 08/05/24 16:17 Pulse Rate 98 08/05/24 16:17 Respiratory Rate 16 08/05/24 16:17 Blood Pressure 123/75 08/05/24 16:17 Pulse Oximetry 98 08/05/24 16:17 Oxygen Delivery Room Air 08/05/24 16:17 Temperature 36.7 C 0
== END 2024-08-05 17:06 | disposition home or self-care (01) ==
PROVIDERS: Emergency Provider Nurse Practitioner Family; PCP Emergency Medicine
DX: K04.7 Periapical abscess without sinus (principal); F17.210 Nicotine dependence, cigarettes, uncomplicated
CPT/HCPCS: 99213; G0463

== ENCOUNTER 2024-09-30 09:14 | Emergency (ER) | payer OTHER, SELFPAY ==
[2024-09-30 09:37] VITALS: BP 106/57; PULSE 82; RESP 16; TEMP 37.2; O2SAT 99
[2024-10-03 10:01] LABS: EDSTREPNEGPOS1 Negative (Negative)
[2024-10-03 10:02] LABS: EDCOVIDSCREEN Negative (Negative); EDINFLUASCREEN Negative (Negative); EDINFLUBSCREEN Negative (Negative)
--- NOTE | 2024-10-05 11:18 | ED_ITS ---
HPI - URI/Sore Throat General Chief Complaint: Upper Respiratory Infection Stated Complaint: body aches, sorethroat Time Seen by Provider: 09/30/24 09:32 Source: patient Mode of arrival: ambulatory Limitations: no limitations History of Present Illness HPI Narrative: 39 yo F presents with c/o cough, sore throat, runny nose, fever, fatigue for 2 to 3 days. Pt's daughter has similar symptoms. Pt requesting strep test. Pt also has redness and swelling to L breast. Pt has been seen multiple times for same complaint. Has been on abx in the past for breast cellulitis. 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 All systems reviewed and negative except as noted above. Related Data Home Medications Medication Instructions Recorded Confirmed levonorgestrel 21 mcg/24 hr (up to See Rx Instructions .Route .COMPLEX 10/07/19 08/05/24 8 years) 52 mg intrauterine device (Mirena) Allergies Allergy/AdvReac Type Severity Reaction Status Date / Time No Known Allergies Allergy Verified 08/05/24 16:16 Review of Systems Review of Systems: CONSTITUTIONAL: Reports fever, chills EYES: Denies visual changes, redness, or discharge. ENT: reports rhinorrhea, congestion, sore throat. Denies otalgia. CARDIOVASCULAR: Denies chest pain, palpitations, or edema. RESPIRATORY: reports cough. Denies dyspnea. GASTROINTESTINAL: Denies abdominal pain, nausea, vomiting, or diarrhea. GENITOURINARY: Denies dysuria or hematuria. SKIN: Denies rash or itching. reports redness and swelling to left breast. MUSCULOSKELETAL: Denies back pain, joint pain, or myalgia. NEUROLOGIC: Denies headache, numbness, or weakness. PSYCHIATRIC: Denies anxiety or depression. All other systems reviewed are negative, except as documented in HPI. [facility] Past Medical History Medical History Anxiety and depression Depression Hx of migraines Surgical History Surgical History H/O: x 3 Family History Family History Grandparent Cerebrovascular accident Diabetes mellitus Carcinoma of colon Kidney disease Mother Lung cancer Social History Social History Smoking status: Current every day smoker Tobacco type: cigarettes Alcohol intake: never Substance use: never Occupation/Education: unemployed Gender identity (if verbalized by the patient): Female Comments At time of signature, agree with nursing past medical, surgical, social and family history. There is no relevant family history pertinent to the presenting complaint. Exam Narrative: GENERAL: This is a well-nourished, well-developed patient, in no apparent distress. HEAD: normocephalic, atraumatic. EYES: PERRL. Sclera clear/white. Vision is grossly intact. EARS: External ears normal, auditory canals clear and without drainage, TMs nor mal without perforation. Hearing grossly intact. NOSE: External nose normal with Mild congestion, clear nasal drainage THROAT: Mucous membranes moist, Mild erythema with postnasal drainage. No si gnificant swelling or exudates. NECK: Neck supple, non-tender without lymphadenopathy, masses or thyromegaly. CARDIOVASCULAR: Regular rate and rhythm without murmurs, gallops, or rubs. RESPIRATORY: Clear to auscultation. Breath sounds equal bilaterally. No wheezes, rales, or rhonchi. SKIN: warm, Dry, intact with no suspicious lesions or rash, good texture and turgor. mild erythema and swelling to medial aspect of left breast approximate 4-5 cm diameter. No fluctuance. NEURO: awake, alert, and oriented to person, place and time. There were no obvious focal neurologic abnormalities. EXTREMITIES: No joint tenderness, effusion, or edema noted. Course Course Level of Care: Express Care Visit Vital Signs Vital signs: Vital Signs Temperature 37.2 C 09/30/24 09:37 Pulse Rate 82 09/30/24 09:37 Respiratory Rate 16 09/30/24 09:37 Blood Pressure 106/57 L 09/30/24 09:37 Pulse Oximetry 99 09/30/24 09:37 Temperature 37.2 C 09/30/24 09:37 Pulse Rate 82 09/30/24 09:37 Respiratory Rate 16 09/30/24 09:37 Blood Pressure 106/57 L 09/30/24 09:37 Pulse Oximetry 99 09/30/24 09:37 Reviewed MDM - URI/Sore Throat MDM Narrative Medical decision making narrative: will treat breast cellulitis with cephalexin. 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 COVID, influenza strep test negative. Strep culture ordered. Discussed results with patient. Recommend she take [id number] medications to treat viral symptoms. Patient is well-appearing, nontoxic. Patient is aware of diagnosis, understands and agrees to treatment plan. Anticipatory guidance given. Patient agrees to follow-up as directed and is aware of reasons to seek care at the emergency department. Portions of this record may have been created with voice recognition software Differential Diagnosis Differential diagnosis: Likely upper respiratory infection, sinusitis, viral infection, influenza and pharyngitis Lab Data Labs: Lab Results 09/30/24 09/30/24 Range/Units 09:53 10:01 POC Influenza A Ag Negative (Negative) POC Influenza B Ag Negative (Negative) POC SARS CoV-2 Ag Negative (Negative) POC Grp A Strep Screen Negative (Negative) Discharge Plan Discharge Clinical Impression: Viral upper respiratory tract infection with cough, Cellulitis of left breast Patient Disposition: Home, Self-Care Condition: Stable Instructions: Antibiotic Form, Upper Respiratory Infection (DC) Additional Instructions: your COVID, influenza and strep test were negative today. A strep culture was ordered and results will take 24-48 hours. If her strep culture is positive we will call you at that time and prescribed an antibiotic. Take antibiotic as prescribed to treat skin infection. Take [id number] medications to treat her upper respiratory symptoms such as DayQuil NyQuil cold and flu. Drink plenty water and rest. Follow-up your primary care physician if symptoms are not improving. Prescriptions: New cephalexin 500 mg tablet 500 mg PO Q6H 10 Days Qty: 40 0RF No Action Mirena 20 mcg/24 hours (5 yrs) 52 mg Intrauterine Device See Rx Instructions .ROUTE .COMPLEX Rx Instructions: 20 mcg intrauterinely doxycycline hyclate 100 mg capsule 100 mg PO DAILY Qty: 20 0RF mometasone 0.1 % ointment 1 applic topical DAILY PRN (Reason: skin irritation) 14 Days Qty: 15 0RF clindamycin HCl 300 mg capsule 300 mg PO Q6H 10 Days Qty: 40 0RF Follow-up/Referrals: Sonali Zavala RN [Primary Care Provider] - Stand Alone Forms: Work/School Release IP Time of Disposition: 10:12
== END 2024-09-30 10:27 | disposition home or self-care (01) ==
LOC: EXPCOLL 11:18
PROVIDERS: Emergency Provider Nurse Practitioner Family
DX: J06.9 Acute upper respiratory infection, unspecified (principal); R05.9 Cough, unspecified; N61.0 Mastitis without abscess; Z20.822 Contact with and (suspected) exposure to COVID-19; F17.210 Nicotine dependence, cigarettes, uncomplicated
CPT/HCPCS: 87081; 87426; 87804; 87880; 99213; G0463

== ENCOUNTER 2025-01-08 14:13 | Emergency (ER) | payer OTHER, SELFPAY ==
[2025-01-08 14:26] VITALS: BP 122/69; PULSE 91; RESP 20; TEMP 37.4; O2SAT 98
--- NOTE | 2025-01-08 14:42 | ED_ITS ---
HPI - URI/Sore Throat General Chief Complaint: Upper Respiratory Infection Stated Complaint: no taste, can't breathe , bodyaches Time Seen by Provider: 01/08/25 14:42 Source: patient Mode of arrival: ambulatory Limitations: no limitations History of Present Illness HPI Narrative: 39 presents with complaint congestion, sore throat, aches, fever since yesterday. Not taking any medications to treat her symptoms. Denies nausea vomiting diarrhea. All systems reviewed and negative except as noted. Related Data Home Medications ?Medication ?Instructions ?Recorded ?Confirmed ?Last Taken ?Type levonorgestrel (Mirena) See Rx Instructions .Route .COMPLEX 10/07/19 08/05/24 Unknown History Allergies Allergy/AdvReac Type Severity Reaction Status Date / Time No Known Allergies Allergy Verified 01/08/25 14:16 Review of Systems Review of Systems: CONSTITUTIONAL: reports fever, chills, or sweats. EYES: Denies visual changes, redness, or discharge. ENT: Reports rhinorrhea, congestion, sore throat. Denies otalgia. CARDIOVASCULAR: Denies chest pain, palpitations, or edema. RESPIRATORY: reports cough. Denies dyspnea. GASTROINTESTINAL: Denies abdominal pain, nausea, vomiting, or diarrhea. GENITOURINARY: Denies dysuria or hematuria. SKIN: Denies rash or itching. MUSCULOSKELETAL: Denies back pain, joint pain, or myalgia. NEUROLOGIC: Denies headache, numbness, or weakness. PSYCHIATRIC: Denies anxiety or depression. All other systems reviewed are negative, except as documented in HPI. [facility] Past Medical History Medical History Anxiety and depression Depression Hx of migraines Surgical History Surgical History H/O: x 3 Family History Family History Grandparent Cerebrovascular accident Diabetes mellitus Carcinoma of colon Kidney disease Mother Lung cancer Social History Social History Smoking status: Current every day smoker Tobacco type: cigarettes Alcohol intake: never Substance use: never Occupation/Education: unemployed Gender identity (if verbalized by the patient): Female Comments At time of signature, agree with nursing past medical, surgical, social and family history. There is no relevant family history pertinent to the presenting complaint. Exam Narrative: GENERAL: This is a well-nourished, well-developed patient, ill-appearing but no acute distress HEAD: normocephalic, atraumatic. EYES: PERRL. Sclera clear/white. Vision is grossly intact. EARS: External ears normal, auditory canals clear and without drainage, TMs normal without perforation. Hearing grossly intact. NOSE: External nose normal with congestion , clear nasal drainage THROAT: Mucous membranes moist, posterior pharynx clear. NECK: Neck supple, non-tender without lymphadenopathy, masses or thyromegaly. CARDIOVASCULAR: Regular rate and rhythm without murmurs, gallops, or rubs. RESPIRATORY: Clear to auscultation. Breath sounds equal bilaterally. No wheezes, rales, or rhonchi. SKIN: warm, Dry, intact with no suspicious lesions or rash, good texture and turgor. NEURO: awake, alert, and oriented to person, place and time. There were no obvious focal neurologic abnormalities. EXTREMITIES: No joint tenderness, effusion, or edema noted. Course Course Level of Care: Express Care Visit Vital Signs Vital signs: Vital Signs Temperature 37.4 C 01/08/25 14:26 Pulse Rate 91 01/08/25 14:26 Respiratory Rate 20 01/08/25 14:26 Blood Pressure 122/69 01/08/25 14:26 Pulse Oximetry 98 01/08/25 14:26 Oxygen Delivery Room Air 01/08/25 14:26 Temperature 37.4 C 01/08/25 14:26 Pulse Rate 91 01/08/25 14:26 Respiratory Rate 20 01/08/25 14:26 Blood Pressure 122/69 01/08/25 14:26 Pulse Oximetry 98 01/08/25 14:26 Oxygen Delivery Room Air 01/08/25 14:26 reviewed MDM - URI/Sore Throat MDM Narrative Medical decision making narrative: positive influenza. Treat patient with Tamiflu. Recommend cfin-mcg-[id number] medications to treat symptoms. Patient is alert, nontoxic. Please be advised this is a medical document. It is intended for [id number] communication. It is written in medical language and may contain unfamiliar abbreviations or verbiage. Medical documents are intended to carry relevant information, facts as evident, and the clinical opinion of the practitioner at the time of the encounter. This report may have been done utilizing a voice recognition system. Attempts have been made to correct errors. However, there may be uncorrected grammatical, spelling, and recognition errors present. The file time of this note does not necessarily represent the time of service. Differential Diagnosis Differential diagnosis: Likely upper respiratory infection, sinusitis, viral infection and influenza Lab Data Labs: Lab Results 01/08/25 01/08/25 Range/Units 14:45 14:46 POC Influenza A Ag Positive (Negative) POC Influenza B Ag Negative (Negative) POC SARS CoV-2 Ag Negative (Negative) Discharge Plan Discharge Clinical Impression: Influenza A Patient Disposition: Home, Self-Care Condition: Stable Instructions: Influenza (ED) Additional Instructions: you were positive for influenza today. Influenza a virus and symptoms may last 10-14 days. Take medications as prescribed. Taking [id number]-[id number]-[id number] medication to treat her symptoms such as DayQuil NyQuil cold and flu. Take ibuprofen every 6-8 hours as needed for pain and fever. Drink at least 64 oz of water a day. See your doctor if symptoms are not improving. Patient Language: [place]ian Prescriptions: New ondansetron 4 mg tablet,disintegrating 4 mg PO Q8H PRN (Reason: nausea and vomiting) Qty: 12 0RF oseltamivir [Tamiflu] 75 mg capsule 75 mg PO Q12H 5 Days Qty: 10 0RF No Action Mirena 20 mcg/24 hours (5 yrs) 52 mg Intrauterine Device See Rx Instructions .ROUTE .COMPLEX Rx Instructions: 20 mcg intrauterinely doxycycline hyclate 100 mg capsule 100 mg PO DAILY Qty: 20 0RF mometasone 0.1 % ointment 1 applic topical DAILY PRN (Reason: skin irritation) 14 Days Qty: 15 0RF cephalexin 500 mg tablet 500 mg PO Q6H 10 Days Qty: 40 0RF clindamycin HCl 300 mg capsule 300 mg PO Q6H 10 Days Qty: 40 0RF Follow-up/Referrals: Sonali Zavala RN [Primary Care Provider] - Stand Alone Forms: Work/School Release IP Time of Disposition: 14:50
[2025-01-08 14:47] LABS: EDINFLUASCREEN Positive (Negative); EDINFLUBSCREEN Negative (Negative)
[2025-01-08 14:47] LABS: EDCOVIDSCREEN Negative (Negative)
== END 2025-01-08 14:55 | disposition home or self-care (01) ==
PROVIDERS: Emergency Provider Nurse Practitioner Family
DX: J10.1 Influenza due to other identified influenza virus with other respiratory manifestations (principal); Z20.822 Contact with and (suspected) exposure to COVID-19; F17.210 Nicotine dependence, cigarettes, uncomplicated
CPT/HCPCS: 87426; 87804; 99213; G0463

== ENCOUNTER 2025-08-19 19:11 | Emergency (ER) | payer BC, SELFPAY ==
[2025-08-19 19:27] VITALS: BP 110/66; PULSE 77; RESP 16; TEMP 37.3; O2SAT 97
--- NOTE | 2025-08-19 19:38 | ED.HA ---
HPI - Headache General Chief Complaint: Headache Stated Complaint: Headache Patient presents to the [facility] with complaints of significant headache behind the eyes that began earlier today patient reports attempting to take ibuprofen because she does normally get headaches from [place] is no difference but patient does report long family history of migraines. Patient she needs a note to return to work since she called off tonight. Also would like something to help with headaches. Also noticed several episodes of vomiting and sensitivity to light due to headache. Denies dizziness, abdominal pain, confusion Related Data Home Medications ?Medication ?Instructions ?Recorded ?Confirmed ?Last Taken ?Type levonorgestrel (Mirena) See Rx Instructions .Route .COMPLEX 10/07/19 08/19/25 Unknown History Allergies Allergy/AdvReac Type Severity Reaction Status Date / Time No Known Allergies Allergy Verified 08/19/25 19:34 Review of Systems Constitutional: Constitutional: Reports as per HPI, Denies chills, Denies fatigue, Denies fever(s) and Denies weakness Eyes: Eyes: Reports as per HPI and Reports photophobia ENT: Reports as per HPI, Denies vertigo, Denies dizziness, Denies nasal congestion and Denies sore throat Cardiovascular: Cardiovascular: Reports no additional cardiovascular complaints Respiratory: Respiratory: Reports no additional respiratory complaints Gastrointestinal: Gastrointestinal: Reports as per HPI, Denies abdominal pain, Denies heartburn, Denies diarrhea, Reports nausea and Reports vomiting Genitourinary: Genitourinary: Reports no additional female genitourinary complaints Musculoskeletal: Musculoskeletal: Reports as per HPI, Denies back pain, Denies myalgias and Denies arthralgias Integumentary/Breasts: Skin/Breast: Reports as per HPI, Denies erythema and Denies rash Neurologic: Reports as per HPI, Reports headache(s), Denies numbness and Denies weakness Psychiatric: Psychiatric: Reports no additional psychiatric complaints Endocrine: Endocrine: Reports no additional endocrine complaints Hematologic/Lymphatic: Hematologic/Lymphatic: Reports no additional hematologic/lymphatic complaints Allergic/Immunologic: Allergic/Immunologic: Reports no additional allergic/immunologic complaints PMFSH Past Medical History Medical History Anxiety and depression Depression Hx of migraines Surgical History Surgical History H/O: x 3 Family History Family History Grandparent Cerebrovascular accident Diabetes mellitus Carcinoma of colon Kidney disease Mother Lung cancer Social History Social History Smoking status: Current every day smoker Tobacco type: cigarettes Alcohol intake: never Substance use: never Occupation/Education: unemployed Gender identity (if verbalized by the patient): Female Exam Const: General: no acute distress and alert Nutritional Appearance: well nourished Orientation/consciousness: patient oriented x3 Limitations: no limitations Other: obvious pain/uncomfortable HENMT: Head: normal to inspection Eyes: Pupils: Equal, round and reactive pupils present EOM: EOMs intact bilaterally Neck: Neck: normal visual inspection and no lymphadenopathy Resp: Effort & Inspection: normal respiratory effort Auscultation: clear to auscultation bilaterally Cardio: Rate: regular rate Rhythm: regular rhythm Skin: General skin exam: normal color Rashes: no rashes Wounds: no wounds Neuro: General: patient oriented x3, moves all extremities, no focal motor deficits and CN's II-XI intact bilaterally Cranial nerves: Yes Nystagmus not present Speech: normal speech Gait exam (Neuro): Normal gait present Psych: Mental Status: mental status grossly normal Affect: normal affect Attitude: cooperative Course Course Level of Care: Express Care Visit Vital Signs Vital signs: Vital Signs Temperature 99.1 F 08/19/25 19:27 Pulse Rate 77 08/19/25 19:27 Respiratory Rate 16 08/19/25 19:27 Blood Pressure 110/66 08/19/25 19:27 Pulse Oximetry 97 08/19/25 19:27 Oxygen Delivery Room Air 08/19/25 19:27 Temperature 99.1 F 08/19/25 19:27 Pulse Rate 77 08/19/25 19:27 Respiratory Rate 16 08/19/25 19:27 Blood Pressure 110/66 08/19/25 19:27 Pulse Oximetry 97 08/19/25 19:27 Oxygen Delivery Room Air 08/19/25 19:27 MDM - Headache MDM Narrative Medical decision making narrative: spoke with patient about migraine-like headaches. Can give patient Toradol injection and Zofran as a migraine cocktail to help with headache relief. Educated patient on these medications and if symptoms are not relieved patient should be evaluated in the emergency room for further evaluation and possible imaging. noted if headaches continue patient should be evaluated by primary care for migraine variant. The patient was evaluated by myself in the psychiatric. History is obtained from patient who is an independent historian and physical exam was performed. Available medical records were reviewed at this time. Exam findings show no acute concerns or changes; patient is non-toxic appearing and is in no distress. Patient is appropriate for outpatient treatment and follow-up. I have evaluated and discussed social determinants of health with the patient that could potentially impact subsequent diagnosis and treatment plans. Differential diagnosis and treatment plan were discussed with the patient. Patient agrees with discussion and after shared medical decision making agrees with plan of care. All questions were answered to the patient's satisfaction. Differential Diagnosis Differential diagnosis: Likely migraine, tension headache, headache and sinusitis Medical Records Attestation: I reviewed the patient's medical records. Discharge Plan Discharge Clinical Impression: Migraine Patient Disposition: Home Condition: Stable Instructions: Antibiotic Form, Migraine Headache (ED), Acute Headache (ED) Additional Instructions: We have given you a Toradol injection and Zofran here at the [facility]. The Toradol is a strong anti-inflammatory medication to help with her headache. Zofran is a medication to help with nausea and vomiting. Recommended to rest for the rest the evening if possible. May use ice to the forehead and eyes to help with headache pain may continue ibuprofen or naproxen at home. May also use Excedrin or Tylenol due to migraine headaches patient's can get some relief by taking magnesium oxide daily as well if you begin to have significant headache or new symptoms report to the emergency room for further evaluation of symptoms. Patient Language: [place] Prescriptions: New ondansetron 4 mg tablet,disintegrating 4 mg PO Q8H PRN (Reason: nausea and vomiting) Qty: 20 0RF No Action Mirena 20 mcg/24 hours (5 yrs) 52 mg Intrauterine Device See Rx Instructions .ROUTE .COMPLEX Rx Instructions: 20 mcg intrauterinely Follow-up/Referrals: PHYSICIAN,SENIOR NET WEB DEVELOPER [Primary Care Provider, Internal Medicine] Stand Alone Forms: Work/School Release IP Time of Disposition: 19:50
[2025-08-19] MEDS: KETOROLAC (*BKC) 60 MG/2 ML VIAL IM (19:43)
[2025-08-19] MEDS: ONDANSETRON HCL ODT 4 MG TABLET 8 MG PO (19:43)
== END 2025-08-19 19:59 | disposition home or self-care (01) ==
PROVIDERS: Emergency Provider Nurse Practitioner Family
DX: G43.909 Migraine, unspecified, not intractable, without status migrainosus (principal); F17.210 Nicotine dependence, cigarettes, uncomplicated
CPT/HCPCS: 96372; 99213; A9270; G0463; J1885